=== PATIENT | male | born 1950 | race Two or more races ===

== ENCOUNTER 2016-08-10 00:47 | Emergency (ER) | payer MEDICAID ==
[~2016-08-10] VITALS: Ht 152.4 cm; Wt 55.0 kg
[~2016-08-10 00:47] MED LIST: ALBU6.7H IH; ASPI-1035 PO; ATOR10TA PO; CALCIUM; DIPH1TAB76; DIPH25CA83 PO; ESOM40CA; FERR-63 PO; HYDR-523 PO; MOME13HF2 IH; PHENDM PO; PROT40 PO; SENSIPAR PO; SEVE800T PO; TIOT18CA3 IH; VALS80TA2; [UNRECOGNIZED DRUG - CODE] PO; [UNRECOGNIZED DRUG - OTHER]
[2016-08-10 02:27] LABS: INR 1.2; PROTHROMBIN TIME 12.7 sec
[2016-08-10 02:29] LABS: ALANINE AMINOTRANSFERASE 8 IU/L (13-61); ALBUMIN 3.9 g/dL (3.4-5.0); ANION GAP 17; CALCIUM 9.3 mg/dL (8.5-10.1); CARBON DIOXIDE 31 mEq/L (21-32); CHLORIDE 91 mEq/L (98-107); INDEX HEMOLYSI 1 (1-3); INDEX ICTERIC 1 (1-4); INDEX LIPEMIC 1 (1-3); UREA NITROGEN BLOOD 41 mg/dL (7-21); eGFR 9 mL/min (>60)
[2016-08-10 02:50] LABS: HEMATOCRIT. 33.9 % (42.0-52.0); MEAN CORPUSCULAR HEMOGLOBIN 25.5 pg (28.0-32.0); MEAN CORPUSCULAR HGB CONC 32.4 g/dL (31.0-37.0); MEAN CORPUSCULAR VOLUME 78.9 fL (80.0-94.0); MEAN PLATELET VOLUME 8.4 fl (7.4-10.4); PLATELET 110 x1000/uL (130-400); RED BLOOD CELL COUNT 4.29 mill/uL (4.7-6.1); RED CELL DISTRIBUTION WIDTH 21.1 % (11.6-14.6); WHITE BLOOD COUNT 4.1 x1000/uL (4.5-11.0)
[2016-08-10 02:51] LABS: DIFFERENTIAL COMMENT 1
[2016-08-10] MEDS ORDERED: LEVOFLOXACIN 750MG PREMIX 150 ML IV ONE (03:00)
[2016-08-10 03:20] LABS: PLATELET ESTIMATE SLIGHTLY DECREASED
[2016-08-10 04:50] VITALS: BP 112/74
== END 2016-08-10 05:12 | disposition home or self-care (01) ==
LOC: ER 00:47
DX: N18.6 End stage renal disease (principal); R05 Cough; Z88.1 Allergy status to other antibiotic agents; Z88.2 Allergy status to sulfonamides; Z79.82 Long term (current) use of aspirin; Z79.899 Other long term (current) drug therapy; Z99.2 Dependence on renal dialysis
CPT/HCPCS: 36415; 71010; 80053; 83605; 85025; 85610; 85730; 87040; 93005; 96365; 99285; J1956; Z7610

== ENCOUNTER 2017-01-08 23:35 | Inpatient (IN) | payer MEDICAID ==
[~2017-01-08] VITALS: Ht 160 cm; Wt 54.4 kg
[~2017-01-08 23:35] MED LIST changes: -ASPI-1035 PO; +ASPI-1159 PO; +REN800 PO; -SEVE800T PO
[2017-01-09] MEDS ORDERED: ONDANSETRON HCL 4MG/2ML VIAL IV STA (00:24)
[2017-01-09] MEDS ORDERED: MORPHINE SULFATE 4 MG/ML CPJ (NOT FOR IM USE) IV STA (00:24)
[2017-01-09 01:15] LABS: BASOPHILS % 1.4 % (0.0-2.0); EOSINOPHILS % 3.4 % (0.0-5.0); HEMATOCRIT. 35.6 % (42.0-52.0); HEMOGLOBIN. 11.8 g/dL (14.0-18.0); LYMPHOCYTES % 26.8 % (20.0-50.0); MEAN CORPUSCULAR HEMOGLOBIN 24.8 pg (28.0-32.0); MEAN CORPUSCULAR VOLUME 74.8 fL (80.0-94.0); MEAN PLATELET VOLUME 8.4 fl (7.4-10.4); MONOCYTES % 8.1 % (2.0-8.0); NEUTROPHILS % 60.3 % (40.0-76.0); PLATELET 227 x1000/uL (130-400); RED BLOOD CELL COUNT 4.76 mill/uL (4.7-6.1); RED CELL DISTRIBUTION WIDTH 19.7 % (11.6-14.6)
[2017-01-09 01:25] LABS: CHLORIDE 90 mEq/L (98-107)
[2017-01-09 01:34] LABS: CARBON DIOXIDE 28 mEq/L (21-32); TROPONIN I < 0.02 ng/mL (0.00-0.04)
[2017-01-09] MEDS ORDERED: LEVOFLOXACIN 750MG PREMIX 150 ML IV ONE (02:15)
[2017-01-09] MEDS ORDERED: ACETAMINOPHEN 325MG TABLET PO PRN ×2 (02:30→10:30)
[2017-01-09] MEDS ORDERED: DIPHENHYDRAMINE 50MG/ML VIAL IV NR (03:15)
[2017-01-09 08:30] VITALS: BP_SYST 132; BP_DIAS 80; BP_DIAS 82
[2017-01-09] MEDS ORDERED: DOCUSATE SODIUM 100MG CAPSULE PO PRN (10:30)
[2017-01-09] MEDS ORDERED: CLONIDINE 0.1MG TABLET PO PRN (10:30)
[2017-01-09] MEDS ORDERED: ONDANSETRON HCL 4MG/2ML VIAL IV PRN (10:30)
[2017-01-09] MEDS ORDERED: MAGNESIUM/ALUMINUM HYDROXIDE/SIMETHICONE 30ML UDC PO PRN (10:30)
[2017-01-09] MEDS ORDERED: IPRATROPIUM/ALBUTEROL 0.5-3(2.5)MG/3ML NEB INH PRN (10:30)
[2017-01-09] MEDS ORDERED: HYDROCODONE/ACETAMINOPHEN 5/325MG TABLET PO PRN (10:30)
[2017-01-09] MEDS ORDERED: DIPHENHYDRAMINE 50MG/ML VIAL IV PRN (10:30)
[2017-01-09] MEDS ORDERED: HYDROMORPHONE HCL/PF 2MG/ML CPJ IV PRN (10:30)
[2017-01-09 12:00] VITALS: BP 127/79
[2017-01-09 12:27] LABS: PHOSPHORUS 2.7 mg/dL (2.5-4.9)
[2017-01-09] MEDS: SEVELAMER CARBONATE 800 MG TABLET PO SCH ×2 (15:02→18:53)
[2017-01-09] MEDS: FOLIC ACID/VITAMIN B COMP W-C TABLET PO SCH (15:02)
[2017-01-09 16:00] VITALS: BP 125/75
[2017-01-09 20:00] VITALS: BP 124/75
[2017-01-10] VITALS (7 sets, daily range): BP systolic 117–135; BP diastolic 73–84
[2017-01-10 05:28] LABS: BASOPHILS % 1.7 % (0.0-2.0); EOSINOPHILS % 2.5 % (0.0-5.0); HEMATOCRIT. 35.4 % (42.0-52.0); HEMOGLOBIN. 11.5 g/dL (14.0-18.0); LYMPHOCYTES % 19.6 % (20.0-50.0); MEAN CORPUSCULAR HEMOGLOBIN 24.6 pg (28.0-32.0); MEAN CORPUSCULAR VOLUME 75.5 fL (80.0-94.0); MEAN PLATELET VOLUME 8.1 fl (7.4-10.4); MONOCYTES % 10.1 % (2.0-8.0); NEUTROPHILS % 66.1 % (40.0-76.0); PLATELET 240 x1000/uL (130-400); RED BLOOD CELL COUNT 4.68 mill/uL (4.7-6.1); RED CELL DISTRIBUTION WIDTH 19.9 % (11.6-14.6)
[2017-01-10 06:28] LABS: CARBON DIOXIDE 28 mEq/L (21-32); CHLORIDE 96 mEq/L (98-107)
[2017-01-10] MEDS ORDERED: CALCIUM ACETATE 667MG CAPSULE PO SCH (08:10)
[2017-01-10] MEDS ORDERED: CALCITRIOL 0.25MCG CAPSULE PO SCH (09:00)
[2017-01-10] MEDS ORDERED: AMLODIPINE 10MG TABLET PO SCH (09:00)
[2017-01-10] MEDS ORDERED: ASPIRIN 81MG EC TABLET PO SCH (09:00)
[2017-01-10] MEDS: FOLIC ACID/VITAMIN B COMP W-C TABLET PO SCH (09:33)
[2017-01-10] MEDS ORDERED: TRAM50TA73 PO (11:52)
== END 2017-01-10 14:18 | disposition home or self-care (01) ==
LOC: ER 01-09 00:26 → 7WST 01-09 02:24 → EDBEDREQ 01-09 02:27 → EDBEDREQTM 01-09 02:27 → ENRESERV 01-09 07:46
PROVIDERS: ADMIT Hospitalist; ATTEND Hospitalist
DX: K80.20 Calculus of gallbladder without cholecystitis without obstruction (principal); J18.9 Pneumonia, unspecified organism; E46 Unspecified protein-calorie malnutrition; N18.6 End stage renal disease; I12.0 Hypertensive chronic kidney disease with stage 5 chronic kidney disease or end stage renal disease; J44.0 Chronic obstructive pulmonary disease with (acute) lower respiratory infection; E83.51 Hypocalcemia; S22.31XA Fracture of one rib, right side, initial encounter for closed fracture; E87.1 Hypo-osmolality and hyponatremia; Z99.2 Dependence on renal dialysis; D63.1 Anemia in chronic kidney disease; Z88.2 Allergy status to sulfonamides; Z88.8 Allergy status to other drugs, medicaments and biological substances; Z79.82 Long term (current) use of aspirin; Z79.899 Other long term (current) drug therapy; Z68.21 Body mass index [BMI] 21.0-21.9, adult
CPT/HCPCS: 36415; 71010; 71100; 74176; 76705; 80053; 82330; 83605; 83690; 83970; 84100; 84484; 85025; 87040; 93005; 93970; 96365; 96375; 99285; J1170; J1200; J1956; J2270; J2405; J7030

== ENCOUNTER 2017-02-05 14:51 | Emergency (ER) | payer MEDICAID ==
[~2017-02-05] VITALS: Ht 160 cm; Wt 53.0 kg
[~2017-02-05 14:51] MED LIST changes: +TRAM50TA73 PO
[2017-02-05 16:50] LABS: BASOPHILS % 1.1 % (0.0-2.0); EOSINOPHILS % 2.3 % (0.0-5.0); HEMATOCRIT. 39.7 % (42.0-52.0); MEAN CORPUSCULAR HEMOGLOBIN 25.5 pg (28.0-32.0); MEAN CORPUSCULAR VOLUME 77.7 fL (80.0-94.0); MEAN PLATELET VOLUME 8.9 fl (7.4-10.4); MONOCYTES % 10.9 % (2.0-8.0); NEUTROPHILS % 60.7 % (40.0-76.0); PLATELET 171 x1000/uL (130-400); RED CELL DISTRIBUTION WIDTH 22.6 % (11.6-14.6)
[2017-02-05] MEDS ORDERED: SODIUM CHLORIDE 0.9% 500 ML IV ONE (16:50)
[2017-02-05 16:58] LABS: CHLORIDE 94 mEq/L (98-107); INR 1.4; PROTHROMBIN TIME 14.6 sec (9.4-11.6)
[2017-02-05] MEDS ORDERED: ONDANSETRON HCL 4MG/2ML VIAL IV ONE (17:00)
[2017-02-05 17:07] LABS: CARBON DIOXIDE 28 mEq/L (21-32)
[2017-02-05 17:30] LABS: PLATELET ESTIMATE NORMAL
[2017-02-05] MEDS ORDERED: ONDANSETRON HCL 4MG TABLET PO ONE (20:15)
[2017-02-05 20:59] VITALS: BP 141/87
== END 2017-02-05 21:10 | disposition home or self-care (01) ==
LOC: ER 14:51
DX: R11.2 Nausea with vomiting, unspecified (principal); N18.6 End stage renal disease; E89.0 Postprocedural hypothyroidism; Z99.2 Dependence on renal dialysis; Z87.891 Personal history of nicotine dependence; Z88.3 Allergy status to other anti-infective agents; Z88.2 Allergy status to sulfonamides; Z79.82 Long term (current) use of aspirin
CPT/HCPCS: 36415; 74176; 80053; 83690; 85025; 85610; 96374; 99285; J2405; J7030; Q0162; Z7610

== ENCOUNTER 2017-05-07 15:33 | Emergency (ER) | payer MEDICAID ==
[~2017-05-07] VITALS: Ht 160 cm; Wt 53.0 kg
[~2017-05-07 15:33] MED LIST changes: -TRAM50TA73 PO; +TRAM50TA94 PO
[2017-05-07 20:04] LABS: BASOPHILS % 0.2 % (0.0-2.0); EOSINOPHILS % 2.9 % (0.0-5.0); HEMATOCRIT. 47.8 % (42.0-52.0); HEMOGLOBIN. 15.5 g/dL (14.0-18.0); LYMPHOCYTES % 32.4 % (20.0-50.0); MEAN CORPUSCULAR HEMOGLOBIN 24.7 pg (28.0-32.0); MEAN CORPUSCULAR VOLUME 76.2 fL (80.0-94.0); MEAN PLATELET VOLUME 8.1 fl (7.4-10.4); MONOCYTES % 12.5 % (2.0-8.0); PLATELET 206 x1000/uL (130-400); RED BLOOD CELL COUNT 6.27 mill/uL (4.7-6.1); RED CELL DISTRIBUTION WIDTH 20.6 % (11.6-14.6)
[2017-05-07 20:08] LABS: CHLORIDE 92 mEq/L (98-107)
[2017-05-07 20:09] LABS: INR 1.3; PROTHROMBIN TIME 13.6 sec (9.4-11.6)
[2017-05-07 20:17] LABS: CARBON DIOXIDE 31 mEq/L (21-32)
[2017-05-07] MEDS ORDERED: MORPHINE SULFATE 4 MG/ML CPJ (NOT FOR IM USE) IV STA (23:05)
[2017-05-07] MEDS ORDERED: ONDANSETRON HCL 4MG/2ML VIAL IV STA (23:05)
[2017-05-07 23:46] VITALS: BP 109/61
== END 2017-05-07 23:45 | disposition home or self-care (01) ==
LOC: ER 15:37
DX: G89.29 Other chronic pain (principal); M54.9 Dorsalgia, unspecified; N18.6 End stage renal disease; J45.909 Unspecified asthma, uncomplicated; Z99.2 Dependence on renal dialysis; Z88.2 Allergy status to sulfonamides; Z88.8 Allergy status to other drugs, medicaments and biological substances; Z79.899 Other long term (current) drug therapy
CPT/HCPCS: 36415; 74176; 80053; 85025; 85610; 96374; 96375; 99285; J2270; J2405; Z7610

== ENCOUNTER 2017-07-02 16:15 | Inpatient (IN) | payer SELFPAY ==
[~2017-07-02] VITALS: Ht 162.6 cm; Wt 52.2 kg
[~2017-07-02 16:15] MED LIST changes: -ESOM40CA; +ESOM40CA PO; -REN800 PO; -VALS80TA2; +VALS80TA2 PO; -[UNRECOGNIZED DRUG - OTHER]; +[UNRECOGNIZED DRUG - OTHER] PO
[2017-07-02] MEDS ORDERED: ASPIRIN 81MG TABLET PO STA (18:34)
[2017-07-02 19:06] LABS: BASOPHILS % 1.1 % (0.0-2.0); EOSINOPHILS % 2.7 % (0.0-5.0); HEMATOCRIT. 49.3 % (42.0-52.0); HEMOGLOBIN. 16.3 g/dL (14.0-18.0); LYMPHOCYTES % 18.6 % (20.0-50.0); MEAN CORPUSCULAR HEMOGLOBIN 25.8 pg (28.0-32.0); MEAN CORPUSCULAR VOLUME 77.9 fL (80.0-94.0); MONOCYTES % 8.7 % (2.0-8.0); NEUTROPHILS % 68.9 % (40.0-76.0); PLATELET 270 x1000/uL (130-400); RED BLOOD CELL COUNT 6.32 mill/uL (4.7-6.1); RED CELL DISTRIBUTION WIDTH 18.9 % (11.6-14.6)
[2017-07-02 19:14] LABS: INR 1.1; PARTIAL THROMBOPLASTIN TIME 23.5 sec (23.4-31.0)
[2017-07-02 19:16] LABS: CHLORIDE 90 mEq/L (98-107)
[2017-07-02 19:23] LABS: CREATINE KINASE 51 IU/L (39-308); TROPONIN I < 0.02 ng/mL (0.00-0.04)
[2017-07-02] MEDS ORDERED: NA PHOS,M-B/NA PHOS,DI-BA ENEMA 118ML PR PRN (20:45)
[2017-07-02] MEDS ORDERED: MAGNESIUM/ALUMINUM HYDROXIDE/SIMETHICONE 30ML UDC PO PRN (20:45)
[2017-07-02] MEDS ORDERED: DOCUSATE SODIUM 100MG CAPSULE PO PRN (20:45)
[2017-07-02] MEDS ORDERED: IPRATROPIUM/ALBUTEROL 0.5-3(2.5)MG/3ML NEB INH PRN (20:45)
[2017-07-02] MEDS ORDERED: ENOXAPARIN 40MG/0.4ML SYR SUBCUT SCH (20:45)
[2017-07-02] MEDS ORDERED: ACETAMINOPHEN 325MG TABLET PO PRN (20:45)
[2017-07-02] MEDS ORDERED: DIPHENHYDRAMINE 50MG/ML VIAL IV PRN (20:45)
[2017-07-02] MEDS ORDERED: CLONIDINE 0.1MG TABLET PO PRN (20:45)
[2017-07-02] MEDS ORDERED: GUAIFENESIN 200MG/10ML SUGAR FREE UDC PO PRN (20:45)
[2017-07-02] MEDS ORDERED: NITROGLYCERIN 0.4MG TABLET SL SL PRN (20:45)
[2017-07-02] MEDS ORDERED: LORAZEPAM 0.5MG TABLET PO PRN (20:45)
[2017-07-02] MEDS ORDERED: ZOLPIDEM TARTRATE 5MG TABLET PO PRN (20:45)
[2017-07-02] MEDS ORDERED: ONDANSETRON HCL 4MG/2ML VIAL IV PRN (20:45)
[2017-07-02] MEDS ORDERED: FAMOTIDINE 20MG/2ML VIAL IV SCH (21:00)
[2017-07-02 22:10] LABS: CREATINE KINASE 40 IU/L (39-308); CREATINE KINASE MB FRACTION 1.7 ng/mL (0.5-3.6); TROPONIN I < 0.02 ng/mL (0.00-0.04)
[2017-07-03] VITALS: BP 120/86
[2017-07-03 04:00] VITALS: BP 130/90
[2017-07-03 07:11] LABS: CREATINE KINASE MB FRACTION 1.5 ng/mL (0.5-3.6); TROPONIN I 0.02 ng/mL (0.00-0.04)
[2017-07-03 08:00] VITALS: BP 100/68
[2017-07-03] MEDS: SEVELAMER CARBONATE 800 MG TABLET PO SCH ×2 (08:10→13:15)
[2017-07-03] MEDS: ASPIRIN 325MG EC TABLET PO SCH ×2 (09:00→11:44)
[2017-07-03] MEDS ORDERED: FOLIC ACID/VITAMIN B COMP W-C TABLET PO SCH (09:00)
[2017-07-03] MEDS ORDERED: ENOXAPARIN 30MG/0.3ML SYR SUBCUT SCH (09:00)
[2017-07-03] MEDS ORDERED: FAMOTIDINE 20MG/2ML VIAL IV SCH (09:00)
[2017-07-03 12:00] VITALS: BP 111/69
[2017-07-03 13:01] VITALS: BP 111/69
[2017-07-03 16:00] VITALS: BP 128/84
== END 2017-07-03 17:05 | disposition home or self-care (01) | DRG 425 ==
LOC: ER 16:15 → 7WST 20:24 → EDBEDREQTM 20:28 → EDBEDREQ 20:28 → ENRESERV 21:41 → 7WST 07-03 08:20
PROVIDERS: ADMIT Internal Medicine; ATTEND Internal Medicine
DX: E87.70 Fluid overload, unspecified (principal); I50.33 Acute on chronic diastolic (congestive) heart failure; E46 Unspecified protein-calorie malnutrition; N18.6 End stage renal disease; I13.2 Hypertensive heart and chronic kidney disease with heart failure and with stage 5 chronic kidney disease, or end stage renal disease; E87.1 Hypo-osmolality and hyponatremia; D63.8 Anemia in other chronic diseases classified elsewhere; E83.51 Hypocalcemia; Z99.2 Dependence on renal dialysis; Z88.2 Allergy status to sulfonamides; Z88.8 Allergy status to other drugs, medicaments and biological substances; Z79.899 Other long term (current) drug therapy; Z79.82 Long term (current) use of aspirin; Z68.1 Body mass index [BMI] 19.9 or less, adult
CPT/HCPCS: 36415; 71045; 80053; 80061; 82550; 82553; 83036; 83605; 83690; 83880; 84443; 84484; 85025; 85610; 85730; 87040; 93005; 93970; 99285; J1650; J3490

== ENCOUNTER 2018-04-23 11:48 | Inpatient (IN) | payer MEDICAID ==
[~2018-04-23] VITALS: Ht 165.1 cm; Wt 56.2 kg
[2018-04-23] MEDS ORDERED: KETOROLAC 30MG/ML VIAL IV STA (13:20)
[2018-04-23] MEDS ORDERED: SODIUM CHLORIDE 0.9% 250 ML IV ONE ×4 (13:30→21:45)
[2018-04-23 15:37] LABS: BASOPHILS % 0.5 % (0.0-2.0); EOSINOPHILS % 0.4 % (0.0-5.0); HEMATOCRIT. 48.5 % (42.0-52.0); HEMOGLOBIN. 16.4 g/dL (14.0-18.0); LYMPHOCYTES % 6.8 % (20.0-50.0); MEAN CORPUSCULAR HEMOGLOBIN 28.1 pg (28.0-32.0); MEAN CORPUSCULAR VOLUME 83.1 fL (80.0-94.0); MEAN PLATELET VOLUME 8.2 fl (7.4-10.4); MONOCYTES % 8.1 % (2.0-8.0); NEUTROPHILS % 84.2 % (40.0-76.0); PLATELET 141 x1000/uL (130-400); RED BLOOD CELL COUNT 5.84 mill/uL (4.7-6.1); RED CELL DISTRIBUTION WIDTH 16.8 % (11.6-14.6)
[2018-04-23 15:42] LABS: CHLORIDE 94 mEq/L (98-107)
[2018-04-23 15:45] LABS: INR 1.3; PARTIAL THROMBOPLASTIN TIME 29.9 sec (23.4-31.0); PROTHROMBIN TIME 12.7 sec (9.1-11.1)
[2018-04-23] MEDS ORDERED: GUAIFENESIN 200MG/10ML SUGAR FREE UDC PO PRN (18:30)
[2018-04-23] MEDS ORDERED: ONDANSETRON HCL 4MG/2ML INJ IV PRN (18:30)
[2018-04-23] MEDS ORDERED: ENOXAPARIN 40MG/0.4ML SYR SUBCUT SCH (18:30)
[2018-04-23] MEDS ORDERED: DOCUSATE SODIUM 100MG CAPSULE PO PRN (18:30)
[2018-04-23] MEDS ORDERED: CLONIDINE 0.1MG TABLET PO PRN (18:30)
[2018-04-23] MEDS ORDERED: LORAZEPAM 2MG/ML CPJ IV PRN (18:30)
[2018-04-23] MEDS ORDERED: DIPHENHYDRAMINE 50MG/ML VIAL IV PRN (18:30)
[2018-04-23] MEDS ORDERED: HYDROCODONE/ACETAMINOPHEN 5/325MG TABLET PO PRN (18:30)
[2018-04-23] MEDS ORDERED: MAGNESIUM/ALUMINUM HYDROXIDE/SIMETHICONE 30ML UDC PO PRN (18:30)
[2018-04-23] MEDS ORDERED: SODIUM CHLORIDE 0.9% 250 ML IV PRN (18:30)
[2018-04-23] MEDS ORDERED: ACETAMINOPHEN 325MG TABLET PO PRN (18:30)
[2018-04-23] MEDS ORDERED: IPRATROPIUM/ALBUTEROL 0.5-3(2.5)MG/3ML NEB INH PRN (18:30)
[2018-04-23] MEDS ORDERED: POTASSIUM CHLORIDE 20MEQ TABLET SR PO NR (20:00)
[2018-04-23] MEDS ORDERED: LEVOFLOXACIN 500MG PREMIX 100 ML IV SCH (21:45)
[2018-04-23] MEDS ORDERED: MIDODRINE HCL 5MG TABLET PO ONE (21:45)
[2018-04-24] VITALS (11 sets, daily range): BP systolic 92–126; BP diastolic 37–82
[2018-04-24 00:13] LABS: CREATINE KINASE MB FRACTION 1.2 ng/mL (0.5-3.6)
[2018-04-24] MEDS ORDERED: HYDROMORPHONE HCL/PF 2MG/ML CPJ IV PRN (03:18)
[2018-04-24] MEDS ORDERED: HYDRALAZINE 20MG/ML VIAL IV PRN (03:19)
[2018-04-24] MEDS ORDERED: SODIUM CHLORIDE 0.9% 250 ML IV PRN ×2 (03:45)
[2018-04-24] MEDS ORDERED: LEVOFLOXACIN 500MG PREMIX 100 ML IV SCH (05:00)
[2018-04-24] MEDS: SODIUM CHLORIDE 0.9% INJ 3ML FLUSH IVF SCH ×3 (05:36→21:00)
[2018-04-24 06:52] LABS: BASOPHILS % 0.9 % (0.0-2.0); EOSINOPHILS % 1.7 % (0.0-5.0); HEMATOCRIT. 44.3 % (42.0-52.0); HEMOGLOBIN. 14.8 g/dL (14.0-18.0); LYMPHOCYTES % 11.5 % (20.0-50.0); MEAN CORPUSCULAR HEMOGLOBIN 28.4 pg (28.0-32.0); MEAN CORPUSCULAR VOLUME 84.8 fL (80.0-94.0); MEAN PLATELET VOLUME 8.5 fl (7.4-10.4); MONOCYTES % 10.4 % (2.0-8.0); NEUTROPHILS % 75.5 % (40.0-76.0); PLATELET 132 x1000/uL (130-400); RED BLOOD CELL COUNT 5.22 mill/uL (4.7-6.1); RED CELL DISTRIBUTION WIDTH 16.9 % (11.6-14.6)
[2018-04-24] MEDS: CALCIUM CARBONATE/VITAMIN D3 500MG TABLET PO SCH ×4 (07:53→21:00)
[2018-04-24] MEDS: ASPIRIN 81MG EC TABLET PO SCH (07:53)
[2018-04-24 08:38] LABS: CHLORIDE 97 mEq/L (98-107)
[2018-04-24 08:46] LABS: CREATINE KINASE 262 IU/L (39-308)
[2018-04-24 08:47] LABS: T4 FREE 1.12 ng/dL (0.76-1.46)
[2018-04-24] MEDS ORDERED: ENOXAPARIN 30MG/0.3ML SYR SUBCUT SCH (09:00)
[2018-04-24 09:26] LABS: CREATINE KINASE MB FRACTION 1.2 ng/mL (0.5-3.6)
[2018-04-25] VITALS (14 sets, daily range): BP systolic 93–146; BP diastolic 41–88
[2018-04-25] MEDS: SODIUM CHLORIDE 0.9% INJ 3ML FLUSH IVF SCH ×2 (06:43→14:00)
[2018-04-25] MEDS: CALCIUM CARBONATE/VITAMIN D3 500MG TABLET PO SCH ×3 (09:00→17:00)
[2018-04-25] MEDS: ASPIRIN 81MG EC TABLET PO SCH (14:46)
[2018-04-26] MEDS ORDERED: LEVOFLOXACIN 250MG PREMIX 50 ML IV SCH (05:00)
== END 2018-04-25 21:24 | disposition home or self-care (01) | DRG 207 ==
LOC: ER 11:48 → 3WST 18:01 → ENRESERV 22:31 → CANRESERV 22:31 → EDBEDREQSVC 23:26 → EDBEDREQ 23:26 → ENRESERV 04-24 02:29
PROVIDERS: ADMIT Internal Medicine; ATTEND Internal Medicine
PROC: 5A1D70Z Performance of Urinary Filtration, Intermittent, Less than 6 Hours Per Day (ICD-10-PCS; principal; 2018-04-25)
DX: I95.89 Other hypotension (principal); E46 Unspecified protein-calorie malnutrition; I12.0 Hypertensive chronic kidney disease with stage 5 chronic kidney disease or end stage renal disease; I42.9 Cardiomyopathy, unspecified; N18.6 End stage renal disease; E83.51 Hypocalcemia; M48.00 Spinal stenosis, site unspecified; K52.9 Noninfective gastroenteritis and colitis, unspecified; E86.1 Hypovolemia; E87.6 Hypokalemia; E03.9 Hypothyroidism, unspecified; M19.90 Unspecified osteoarthritis, unspecified site; K21.9 Gastro-esophageal reflux disease without esophagitis; M81.0 Age-related osteoporosis without current pathological fracture; Z99.2 Dependence on renal dialysis; Z68.20 Body mass index [BMI] 20.0-20.9, adult; Z91.013 Allergy to seafood; Z88.2 Allergy status to sulfonamides; Z91.018 Allergy to other foods; Z79.899 Other long term (current) drug therapy; Z79.82 Long term (current) use of aspirin; Z85.46 Personal history of malignant neoplasm of prostate; Z92.3 Personal history of irradiation
CPT/HCPCS: 36415; 71045; 80061; 82550; 82553; 83036; 83880; 84439; 84443; 84484; 85379; 93005; 93306; 96361; 96374; 99285; J1650; J1885; J1956; J7050

== ENCOUNTER 2018-06-02 21:49 | Inpatient (IN) | payer MEDICAID ==
[~2018-06-02] VITALS: Ht 160 cm; Wt 56.8 kg
[2018-06-02] MEDS ORDERED: MORPHINE SULFATE 4 MG/ML CPJ (NOT FOR IM USE) IV STA (22:54)
[2018-06-02] MEDS ORDERED: ONDANSETRON HCL 4MG/2ML INJ IV STA (22:54)
[2018-06-02 23:44] LABS: CHLORIDE 90 mEq/L (98-107)
[2018-06-02 23:46] LABS: BASOPHILS % 0.7 % (0.0-2.0); EOSINOPHILS % 0.4 % (0.0-5.0); HEMATOCRIT. 50.7 % (42.0-52.0); HEMOGLOBIN. 16.7 g/dL (14.0-18.0); LYMPHOCYTES % 11.6 % (20.0-50.0); MEAN CORPUSCULAR HEMOGLOBIN 26.7 pg (28.0-32.0); MEAN CORPUSCULAR VOLUME 81.1 fL (80.0-94.0); MEAN PLATELET VOLUME 8.3 fl (7.4-10.4); MONOCYTES % 8.5 % (2.0-8.0); NEUTROPHILS % 78.8 % (40.0-76.0); PLATELET 151 x1000/uL (130-400); RED BLOOD CELL COUNT 6.24 mill/uL (4.7-6.1); RED CELL DISTRIBUTION WIDTH 16.8 % (11.6-14.6)
[2018-06-02 23:48] LABS: ETHANOL BLOOD < 10 mg/dL
[2018-06-02 23:55] LABS: INR 1.3; PARTIAL THROMBOPLASTIN TIME 30.5 sec (23.4-31.0); PROTHROMBIN TIME 12.6 sec (9.1-11.1)
[2018-06-03 03:00] VITALS: BP 102/66
[2018-06-03] MEDS ORDERED: ENOXAPARIN 40MG/0.4ML SYR SUBCUT SCH (05:30)
[2018-06-03] MEDS ORDERED: ACETAMINOPHEN 325MG TABLET PO PRN (05:30)
[2018-06-03] MEDS ORDERED: MAGNESIUM/ALUMINUM HYDROXIDE/SIMETHICONE 30ML UDC PO PRN (05:30)
[2018-06-03] MEDS ORDERED: IPRATROPIUM/ALBUTEROL 0.5-3(2.5)MG/3ML NEB INH PRN (05:30)
[2018-06-03] MEDS ORDERED: CLONIDINE 0.1MG TABLET PO PRN (05:30)
[2018-06-03] MEDS ORDERED: GUAIFENESIN 200MG/10ML SUGAR FREE UDC PO PRN (05:30)
[2018-06-03] MEDS ORDERED: HYDROCODONE/ACETAMINOPHEN 10/325MG TABLET PO PRN (05:30)
[2018-06-03] MEDS ORDERED: HYDROMORPHONE HCL/PF 2MG/ML CPJ IV PRN (05:30)
[2018-06-03] MEDS ORDERED: ONDANSETRON HCL 4MG/2ML INJ IV PRN (05:30)
[2018-06-03] MEDS ORDERED: HYDRALAZINE 20MG/ML VIAL IV PRN (05:30)
[2018-06-03] MEDS ORDERED: DOCUSATE SODIUM 100MG CAPSULE PO PRN (05:30)
[2018-06-03] MEDS ORDERED: PIPERACILLIN/TAZ 3.375G PREMIX 50 ML IV SCH (05:30)
[2018-06-03] MEDS ORDERED: LORAZEPAM 2MG/ML CPJ IV PRN (05:30)
[2018-06-03] MEDS: SODIUM CHLORIDE 0.9% INJ 3ML FLUSH IVF SCH ×3 (06:46→20:59)
[2018-06-03 08:00] VITALS: BP 107/70
[2018-06-03] MEDS: ENOXAPARIN 30MG/0.3ML SYR SUBCUT SCH (08:40)
[2018-06-03] MEDS: ASPIRIN 81MG EC TABLET PO SCH (08:40)
[2018-06-03] MEDS: PIPERACILLIN/TAZ 2.25G PREMIX 50 ML IV SCH ×2 (08:40→20:59)
[2018-06-03 09:37] LABS: CREATINE KINASE MB FRACTION < 1.0 ng/mL (0.5-3.6)
[2018-06-03 09:39] LABS: CREATINE KINASE 204 IU/L (39-308)
[2018-06-03 12:00] VITALS: BP 102/69
[2018-06-03 16:00] VITALS: BP 108/74
[2018-06-03 16:26] LABS: CREATINE KINASE 167 IU/L (39-308)
[2018-06-03 16:27] LABS: CREATINE KINASE MB FRACTION < 1.0 ng/mL (0.5-3.6)
[2018-06-03 20:00] VITALS: BP 109/72
[2018-06-03] MEDS: DIPHENHYDRAMINE 50MG/ML VIAL IV PRN (23:27)
[2018-06-04] VITALS: BP 119/80
[2018-06-04 04:00] VITALS: BP 96/65
[2018-06-04] MEDS: CALCIUM CARBONATE 1250MG TABLET (500MG ELEMENTAL CALCIUM) PO SCH ×3 (06:24→23:22)
[2018-06-04] MEDS: SODIUM CHLORIDE 0.9% INJ 3ML FLUSH IVF SCH ×3 (06:24→22:00)
[2018-06-04 07:05] LABS: BASOPHILS % 1.3 % (0.0-2.0); EOSINOPHILS % 3.4 % (0.0-5.0); HEMOGLOBIN. 15.1 g/dL (14.0-18.0); LYMPHOCYTES % 27.2 % (20.0-50.0); MEAN CORPUSCULAR HEMOGLOBIN 26.8 pg (28.0-32.0); MEAN CORPUSCULAR VOLUME 81.8 fL (80.0-94.0); MEAN PLATELET VOLUME 8.3 fl (7.4-10.4); MONOCYTES % 10.9 % (2.0-8.0); NEUTROPHILS % 57.2 % (40.0-76.0); PLATELET 139 x1000/uL (130-400); RED BLOOD CELL COUNT 5.63 mill/uL (4.7-6.1); RED CELL DISTRIBUTION WIDTH 16.8 % (11.6-14.6)
[2018-06-04 07:47] LABS: CHLORIDE 90 mEq/L (98-107)
[2018-06-04 07:55] LABS: LDL CHOLESTEROL 69 mg/dL (5-100)
[2018-06-04 07:56] LABS: HDL CHOLESTEROL 27 mg/dL (40-59); T4 FREE 1.07 ng/dL (0.76-1.46)
[2018-06-04 08:00] VITALS: BP 113/71
[2018-06-04 12:22] VITALS: BP 85/58
[2018-06-04] MEDS: ASPIRIN 81MG EC TABLET PO SCH (12:42)
[2018-06-04] MEDS: PIPERACILLIN/TAZ 2.25G PREMIX 50 ML IV SCH ×2 (12:42→23:21)
[2018-06-04] MEDS: ENOXAPARIN 30MG/0.3ML SYR SUBCUT SCH (12:43)
[2018-06-04 16:00] VITALS: BP 116/72
[2018-06-04 20:00] VITALS: BP 125/76
[2018-06-05] VITALS: BP 128/77
[2018-06-05 04:00] VITALS: BP 112/72
[2018-06-05] MEDS: SODIUM CHLORIDE 0.9% INJ 3ML FLUSH IVF SCH ×3 (06:04→21:11)
[2018-06-05] MEDS: CALCIUM CARBONATE 1250MG TABLET (500MG ELEMENTAL CALCIUM) PO SCH ×3 (06:23→22:00)
[2018-06-05 08:00] VITALS: BP 125/85
[2018-06-05] MEDS: PIPERACILLIN/TAZ 2.25G PREMIX 50 ML IV SCH ×2 (08:58→20:33)
[2018-06-05] MEDS: ASPIRIN 81MG EC TABLET PO SCH (08:58)
[2018-06-05] MEDS: CHOLECALCIFEROL (D3) 1000 UNIT TABLET PO SCH (08:58)
[2018-06-05] MEDS: ENOXAPARIN 30MG/0.3ML SYR SUBCUT SCH (08:58)
[2018-06-05 12:00] VITALS: BP 128/77
[2018-06-05 16:00] VITALS: BP 128/76
[2018-06-05 20:00] VITALS: BP 119/75
[2018-06-06] VITALS (7 sets, daily range): BP systolic 108–132; BP diastolic 66–78
[2018-06-06] MEDS: CALCIUM CARBONATE 1250MG TABLET (500MG ELEMENTAL CALCIUM) PO SCH ×3 (06:27→21:39)
[2018-06-06] MEDS: SODIUM CHLORIDE 0.9% INJ 3ML FLUSH IVF SCH ×3 (06:57→21:39)
[2018-06-06 07:13] LABS: EOSINOPHILS % 7.5 % (0.0-5.0); HEMOGLOBIN. 14.5 g/dL (14.0-18.0); LYMPHOCYTES % 33.6 % (20.0-50.0); MEAN CORPUSCULAR HEMOGLOBIN 26.7 pg (28.0-32.0); MEAN CORPUSCULAR VOLUME 82.9 fL (80.0-94.0); MEAN PLATELET VOLUME 8.1 fl (7.4-10.4); MONOCYTES % 12.4 % (2.0-8.0); NEUTROPHILS % 44.5 % (40.0-76.0); PLATELET 157 x1000/uL (130-400); RED BLOOD CELL COUNT 5.42 mill/uL (4.7-6.1); RED CELL DISTRIBUTION WIDTH 16.6 % (11.6-14.6)
[2018-06-06] MEDS: ASPIRIN 81MG EC TABLET PO SCH (08:19)
[2018-06-06] MEDS: ENOXAPARIN 30MG/0.3ML SYR SUBCUT SCH (08:19)
[2018-06-06] MEDS: CHOLECALCIFEROL (D3) 1000 UNIT TABLET PO SCH (08:19)
[2018-06-06] MEDS: PIPERACILLIN/TAZ 2.25G PREMIX 50 ML IV SCH ×2 (10:25→19:47)
[2018-06-06] MEDS: DIPHENHYDRAMINE 50MG/ML VIAL IV PRN (12:07)
[2018-06-06] MEDS ORDERED: TUBERCULIN,PURIF.PROT.DERIV. 5 TU/0.1 ML SYR ID ONE (22:00)
[2018-06-07] VITALS: BP 119/68
== END 2018-06-07 01:39 | disposition home or self-care (01) | DRG 249 ==
LOC: ER 21:49 → 7WST 06-03 01:09 → EDBEDREQTM 06-03 01:13 → EDBEDREQ 06-03 01:13 → ENRESERV 06-03 01:43
PROVIDERS: ADMIT Internal Medicine; ATTEND Internal Medicine
PROC: 5A1D70Z Performance of Urinary Filtration, Intermittent, Less than 6 Hours Per Day (ICD-10-PCS; principal; 2018-06-04)
DX: A08.4 Viral intestinal infection, unspecified (principal); E46 Unspecified protein-calorie malnutrition; E87.5 Hyperkalemia; N18.6 End stage renal disease; K80.20 Calculus of gallbladder without cholecystitis without obstruction; I10 Essential (primary) hypertension; K40.90 Unilateral inguinal hernia, without obstruction or gangrene, not specified as recurrent; D72.829 Elevated white blood cell count, unspecified; Z99.2 Dependence on renal dialysis; Z91.013 Allergy to seafood; Z88.2 Allergy status to sulfonamides; Z91.018 Allergy to other foods; Z79.82 Long term (current) use of aspirin; Z85.46 Personal history of malignant neoplasm of prostate; Z92.3 Personal history of irradiation; Z79.899 Other long term (current) drug therapy; Q61.3 Polycystic kidney, unspecified; Z68.22 Body mass index [BMI] 22.0-22.9, adult
CPT/HCPCS: 36415; 71045; 74176; 80048; 80061; 82550; 82553; 83605; 83880; 84439; 84443; 84484; 87015; 87045; 87427; 87449; 90585; 93005; 94640; 96374; 96375; 99285; J1200; J1650; J2270; J2405; J2543; J7050

== ENCOUNTER 2018-09-20 09:51 | Inpatient (IN) | payer MEDICAID ==
[~2018-09-20] VITALS: Ht 172.7 cm; Wt 78.2 kg
[~2018-09-20 09:51] MED LIST changes: -ASPI-1159 PO; +ASPI-1393 PO
[2018-09-20] MEDS ORDERED: ONDANSETRON HCL 4MG/2ML INJ IV STA (11:57)
[2018-09-20] MEDS ORDERED: SODIUM CHLORIDE 0.9% 1,000 ML IV ONE (11:57)
[2018-09-20] MEDS ORDERED: MORPHINE SULFATE 4 MG/ML CPJ (NOT FOR IM USE) IV ONE (12:00)
[2018-09-20 12:38] LABS: HEMATOCRIT. 41.3 % (42.0-52.0); HEMOGLOBIN. 13.5 g/dL (14.0-18.0); MEAN CORPUSCULAR HEMOGLOBIN 24.5 pg (28.0-32.0); MEAN CORPUSCULAR VOLUME 74.7 fL (80.0-94.0); PLATELET 179 x1000/uL (130-400); RED BLOOD CELL COUNT 5.52 mill/uL (4.7-6.1); RED CELL DISTRIBUTION WIDTH 17.9 % (11.6-14.6)
[2018-09-20 12:43] LABS: CHLORIDE 92 mEq/L (98-107)
[2018-09-20 12:49] LABS: D-DIMER 1.7 mg/L FEU (<0.50); INR 1.1; PARTIAL THROMBOPLASTIN TIME 28.2 sec (23.4-31.0); PROTHROMBIN TIME 11.8 sec (9.6-11.0)
[2018-09-20 13:08] LABS: PLATELET ESTIMATE NORMAL
[2018-09-20] MEDS ORDERED: CALCIUM GLUCONATE 1,000 MG in DEXTROSE 5% WATER 50 ML IV ONE (15:00)
[2018-09-20] MEDS ORDERED: IPRATROPIUM/ALBUTEROL 0.5-3(2.5)MG/3ML NEB INH PRN (15:30)
[2018-09-20] MEDS ORDERED: DOCUSATE SODIUM 100MG CAPSULE PO PRN (15:30)
[2018-09-20] MEDS ORDERED: DIPHENHYDRAMINE 50MG/ML VIAL IV PRN (15:30)
[2018-09-20] MEDS ORDERED: MORPHINE SULFATE 2 MG/ML CPJ (NOT FOR IM USE) IV PRN (15:30)
[2018-09-20] MEDS ORDERED: GUAIFENESIN 200MG/10ML SUGAR FREE UDC PO PRN (15:30)
[2018-09-20] MEDS ORDERED: ONDANSETRON HCL 4MG/2ML INJ IV PRN (15:30)
[2018-09-20] MEDS ORDERED: MAGNESIUM/ALUMINUM HYDROXIDE/SIMETHICONE 30ML UDC PO PRN (15:30)
[2018-09-20] MEDS ORDERED: CLONIDINE 0.1MG TABLET PO PRN (15:30)
[2018-09-20] MEDS ORDERED: IOHEXOL-350 100 ML BOTTLE ONE (16:45)
[2018-09-20 18:45] VITALS: BP 133/87
[2018-09-20] MEDS ORDERED: REN800 MT (19:49)
[2018-09-20 20:00] VITALS: BP 135/92
[2018-09-20] MEDS: CALCIUM CARBONATE 1250MG TABLET (500MG ELEMENTAL CALCIUM) PO SCH (21:38)
[2018-09-20 23:46] VITALS: BP 119/81
[2018-09-21 04:00] VITALS: BP 107/72
[2018-09-21 07:46] VITALS: BP 112/79
[2018-09-21] MEDS: CALCITRIOL 0.25MCG CAPSULE PO SCH (11:31)
[2018-09-21 12:06] VITALS: BP 108/67
[2018-09-21] MEDS: CALCIUM CARBONATE 1250MG TABLET (500MG ELEMENTAL CALCIUM) PO SCH ×3 (12:39→18:57)
[2018-09-21] MEDS: MORPHINE SULFATE 2 MG/ML CPJ (NOT FOR IM USE) IV PRN ×2 (12:43→14:34)
[2018-09-21 15:51] VITALS: BP 150/75
[2018-09-21 20:30] VITALS: BP 136/81
[2018-09-22] VITALS: BP 137/82
[2018-09-22] MEDS: MORPHINE SULFATE 2 MG/ML CPJ (NOT FOR IM USE) IV PRN (00:07)
[2018-09-22 04:00] VITALS: BP 136/83
[2018-09-22 07:02] LABS: HEMATOCRIT. 38.5 % (42.0-52.0); HEMOGLOBIN. 12.7 g/dL (14.0-18.0); MEAN CORPUSCULAR HEMOGLOBIN 24.7 pg (28.0-32.0); MEAN CORPUSCULAR VOLUME 75.1 fL (80.0-94.0); MEAN PLATELET VOLUME 8.2 fl (7.4-10.4); PLATELET 158 x1000/uL (130-400); RED BLOOD CELL COUNT 5.12 mill/uL (4.7-6.1); RED CELL DISTRIBUTION WIDTH 17.3 % (11.6-14.6)
[2018-09-22 07:13] LABS: CHLORIDE 97 mEq/L (98-107)
[2018-09-22] MEDS ORDERED: PANTOPRAZOLE 40MG DR TABLET PO SCH (07:20)
[2018-09-22 07:33] LABS: TOTAL IRON BINDING CAPACITY 307 ug/dL (250-450)
[2018-09-22 08:00] VITALS: BP 102/78
[2018-09-22] MEDS: CALCIUM CARBONATE 1250MG TABLET (500MG ELEMENTAL CALCIUM) PO SCH ×2 (08:58→13:14)
[2018-09-22] MEDS: CALCITRIOL 0.25MCG CAPSULE PO SCH (08:58)
[2018-09-22 12:00] VITALS: BP 131/77
[2018-09-22 14:02] LABS: PLATELET ESTIMATE NORMAL
[2018-09-22] MEDS ORDERED: CALC0.253 PO (15:15)
[2018-09-22] MEDS ORDERED: DOCU-150 MT (15:15)
[2018-09-22 15:49] VITALS: BP 130/72
[2018-09-22 16:00] VITALS: BP 127/78
[2018-09-22] MEDS ORDERED: ATORVASTATIN CALCIUM 10MG TABLET PO SCH (21:00)
== END 2018-09-22 17:45 | disposition home or self-care (01) | DRG 203 ==
LOC: ER 09:51 → 6WST 15:07 → ENRESERV 15:56 → ER 17:05
PROVIDERS: ADMIT Internal Medicine; ATTEND Internal Medicine
PROC: 5A1D70Z Performance of Urinary Filtration, Intermittent, Less than 6 Hours Per Day (ICD-10-PCS; principal; 2018-09-20)
DX: R07.89 Other chest pain (principal); E87.70 Fluid overload, unspecified; D72.1 Eosinophilia; N18.6 End stage renal disease; E83.51 Hypocalcemia; M48.56XA Collapsed vertebra, not elsewhere classified, lumbar region, initial encounter for fracture; Q61.3 Polycystic kidney, unspecified; I45.10 Unspecified right bundle-branch block; D50.9 Iron deficiency anemia, unspecified; E89.0 Postprocedural hypothyroidism; E89.2 Postprocedural hypoparathyroidism; I44.0 Atrioventricular block, first degree; J98.11 Atelectasis; Z85.46 Personal history of malignant neoplasm of prostate; Z99.2 Dependence on renal dialysis; Z99.3 Dependence on wheelchair; Z88.5 Allergy status to narcotic agent; Z91.013 Allergy to seafood; Z88.8 Allergy status to other drugs, medicaments and biological substances; Z91.018 Allergy to other foods
CPT/HCPCS: 36415; 71045; 71110; 71275; 78582; 80048; 82728; 83540; 83550; 83735; 83880; 83970; 84100; 84145; 84484; 85379; 93005; 93970; 96374; 96375; 97162; 97165; 99285; A9558; J1200; J2270; J2405; J7030; Q9967

== ENCOUNTER 2018-12-03 15:19 | Emergency (ER) | payer MEDICAID ==
[~2018-12-03] VITALS: Ht 162.6 cm; Wt 55.0 kg
[~2018-12-03 15:19] MED LIST changes: -ASPI-1393 PO; +CALC0.253 PO; -CALCIUM; -DIPH1TAB76; +DOCU-150 MT; -ESOM40CA PO; -HYDR-523 PO; +REN800 MT; -SENSIPAR PO; -VALS80TA2 PO; -[UNRECOGNIZED DRUG - CODE] PO; -[UNRECOGNIZED DRUG - OTHER] PO
[2018-12-03] MEDS ORDERED: CALC650T PO (15:53)
[2018-12-03] MEDS ORDERED: PRAV20TA57 PO (15:53)
[2018-12-03] MEDS ORDERED: REN800 PO (15:53)
[2018-12-03 18:24] VITALS: BP 120/80
[2018-12-03] MEDS ORDERED: CLOTRIMAZOLE/BETAMETHASONE 1/0.05% CREAM 15GM TOP SCH (21:00)
== END 2018-12-03 18:30 | disposition home or self-care (01) ==
LOC: ER 15:19
DX: R05 Cough (principal); R21 Rash and other nonspecific skin eruption; L29.9 Pruritus, unspecified; J40 Bronchitis, not specified as acute or chronic
CPT/HCPCS: 71045; 99283

== ENCOUNTER 2018-12-16 17:03 | Inpatient (IN) | payer MEDICAID ==
[~2018-12-16] VITALS: Ht 167.6 cm; Wt 65.8 kg
[~2018-12-16 17:03] MED LIST changes: +CALC650T PO; +PRAV20TA57 PO; +REN800 PO
[2018-12-16] MEDS ORDERED: MORPHINE SULFATE 4 MG/ML CPJ (NOT FOR IM USE) IV STA (18:10)
[2018-12-16] MEDS ORDERED: ONDANSETRON HCL 4MG/2ML INJ IV STA (18:10)
[2018-12-16 18:24] LABS: BASOPHILS % 2.5 % (0.0-2.0); EOSINOPHILS % 1.6 % (0.0-5.0); HEMATOCRIT. 27.9 % (42.0-52.0); HEMOGLOBIN. 8.9 g/dL (14.0-18.0); LYMPHOCYTES % 23.1 % (20.0-50.0); MEAN PLATELET VOLUME 8.6 fl (7.4-10.4); MONOCYTES % 9.5 % (2.0-8.0); NEUTROPHILS % 63.3 % (40.0-76.0); PLATELET 217 x1000/uL (130-400); RED BLOOD CELL COUNT 4.22 mill/uL (4.7-6.1)
[2018-12-16 18:27] LABS: CHLORIDE 97 mEq/L (98-107)
[2018-12-16 18:28] LABS: INR 1.2; PROTHROMBIN TIME 12.1 sec (9.6-11.0)
[2018-12-16] MEDS ORDERED: CALCIUM GLUCONATE 100MG/ML 10ML VIAL IV ONE (19:15)
[2018-12-16] MEDS ORDERED: CLONIDINE 0.1MG TABLET PO PRN (20:15)
[2018-12-16] MEDS ORDERED: ONDANSETRON HCL 4MG/2ML INJ IV PRN (20:15)
[2018-12-16 20:22] LABS: PLATELET ESTIMATE NORMAL
[2018-12-16] MEDS ORDERED: TRAMADOL 50MG TABLET PO PRN (20:30)
[2018-12-16] MEDS ORDERED: CALCIUM GLUCONATE 1000MG in DEXTROSE 5% WATER 50ML IV NR (21:00)
[2018-12-16] MEDS ORDERED: ZOLPIDEM TARTRATE 5MG TABLET PO PRN (21:00)
[2018-12-17] VITALS (7 sets, daily range): BP systolic 114–157; BP diastolic 69–102
[2018-12-17] MEDS ORDERED: HYDROCODONE/ACETAMINOPHEN 5/325MG TABLET PO PRN (00:30)
[2018-12-17] MEDS ORDERED: EPOETIN ALFA 4000UNITS/ML VIAL SUBCUT SCH (01:00)
[2018-12-17] MEDS: HYDROXYZINE 25MG TABLET PO PRN ×2 (01:30→10:50)
[2018-12-17] MEDS: IRON SUCROSE COMPLEX 100 MG/5 ML ML IV SCH (03:15)
[2018-12-17 07:02] LABS: CHLORIDE 97 mEq/L (98-107)
[2018-12-17 07:22] LABS: BASOPHILS % 1.2 % (0.0-2.0); HEMATOCRIT. 25.7 % (42.0-52.0); HEMOGLOBIN. 8.3 g/dL (14.0-18.0); LYMPHOCYTES % 26.8 % (20.0-50.0); MEAN CORPUSCULAR HEMOGLOBIN 21.3 pg (28.0-32.0); MEAN CORPUSCULAR VOLUME 66.2 fL (80.0-94.0); MEAN PLATELET VOLUME 8.7 fl (7.4-10.4); MONOCYTES % 10.2 % (2.0-8.0); NEUTROPHILS % 58.8 % (40.0-76.0); PLATELET 198 x1000/uL (130-400); RED BLOOD CELL COUNT 3.88 mill/uL (4.7-6.1); RED CELL DISTRIBUTION WIDTH 19.9 % (11.6-14.6)
[2018-12-17] MEDS: CALCIUM ACETATE 667MG CAPSULE PO SCH ×3 (08:31→16:30)
[2018-12-17] MEDS: DOCUSATE SODIUM 100MG CAPSULE PO SCH (08:31)
[2018-12-17] MEDS: CHOLECALCIFEROL (D3) 1000 UNIT TABLET PO SCH (08:34)
[2018-12-17] MEDS: MORPHINE SULFATE 2 MG/ML CPJ (NOT FOR IM USE) IV PRN ×2 (08:48→13:15)
[2018-12-17] MEDS ORDERED: CALCIUM GLUCONATE 1,000 MG in DEXT 5% WATER 90 ML IV NR (10:00)
[2018-12-17 23:31] LABS: CLARITY URINE CLOUDY (CLEAR); COLOR URINE YELLOW (YELLOW); KETONES URINE NEGATIVE (NEGATIVE); LEUKOCYTE ESTERASE URINE 2+ (NEGATIVE); NITRITE URINE NEGATIVE (NEGATIVE); OCCULT BLOOD URINE 2+ (NEGATIVE); PH URINE >=9.0 (4.5-8.0); PROTEIN URINE 3+ (NEGATIVE); SPECIFIC GRAVITY URINE 1.013 (1.005-1.030); UROBILINOGEN URINE 0.2 E.U./dL (0.2-1.0)
[2018-12-18] VITALS: BP 118/65
[2018-12-18 04:00] VITALS: BP 152/92
[2018-12-18 06:33] LABS: BASOPHILS % 1.4 % (0.0-2.0); EOSINOPHILS % 2.4 % (0.0-5.0); HEMATOCRIT. 28.1 % (42.0-52.0); HEMOGLOBIN. 8.9 g/dL (14.0-18.0); LYMPHOCYTES % 17.9 % (20.0-50.0); MEAN CORPUSCULAR VOLUME 66.5 fL (80.0-94.0); MONOCYTES % 10.1 % (2.0-8.0); NEUTROPHILS % 68.2 % (40.0-76.0); PLATELET 188 x1000/uL (130-400); RED BLOOD CELL COUNT 4.23 mill/uL (4.7-6.1); RED CELL DISTRIBUTION WIDTH 20.2 % (11.6-14.6)
[2018-12-18 08:00] VITALS: BP 163/103
[2018-12-18] MEDS: IRON SUCROSE COMPLEX 100 MG/5 ML ML IV SCH (09:15)
[2018-12-18] MEDS: CHOLECALCIFEROL (D3) 1000 UNIT TABLET PO SCH (09:15)
[2018-12-18] MEDS: CALCIUM ACETATE 667MG CAPSULE PO SCH ×3 (09:15→17:39)
[2018-12-18] MEDS: DOCUSATE SODIUM 100MG CAPSULE PO SCH (09:16)
[2018-12-18 09:25] LABS: PHOSPHORUS 2.9 mg/dL (2.5-4.9)
[2018-12-18] MEDS: CEFTRIAXONE 1 G PREMIX 50 ML IV SCH (11:00)
[2018-12-18 12:00] VITALS: BP 124/77
[2018-12-18 16:00] VITALS: BP 147/96
[2018-12-18] MEDS: MORPHINE SULFATE 2 MG/ML CPJ (NOT FOR IM USE) IV PRN (17:48)
[2018-12-18 20:00] VITALS: BP 140/90
[2018-12-18] MEDS ORDERED: EPOETIN ALFA 4000UNITS/ML VIAL SUBCUT NR (21:00)
[2018-12-18] MEDS: HYDROXYZINE 25MG TABLET PO PRN (22:46)
[2018-12-19] VITALS: BP 147/91
[2018-12-19 04:00] VITALS: BP 148/92
[2018-12-19 06:30] LABS: HEMATOCRIT. 27.1 % (42.0-52.0); HEMOGLOBIN. 8.6 g/dL (14.0-18.0); MEAN CORPUSCULAR HEMOGLOBIN 21.4 pg (28.0-32.0); MEAN PLATELET VOLUME 8.8 fl (7.4-10.4); PLATELET 194 x1000/uL (130-400); RED BLOOD CELL COUNT 4.05 mill/uL (4.7-6.1); RED CELL DISTRIBUTION WIDTH 20.2 % (11.6-14.6)
[2018-12-19 08:00] VITALS: BP 124/82
[2018-12-19] MEDS: CHOLECALCIFEROL (D3) 1000 UNIT TABLET PO SCH (08:37)
[2018-12-19] MEDS: CALCIUM ACETATE 667MG CAPSULE PO SCH ×3 (08:37→16:33)
[2018-12-19] MEDS: IRON SUCROSE COMPLEX 100 MG/5 ML ML IV SCH (08:37)
[2018-12-19] MEDS: DOCUSATE SODIUM 100MG CAPSULE PO SCH (08:37)
[2018-12-19] MEDS: HYDROXYZINE 25MG TABLET PO PRN ×2 (08:45→23:01)
[2018-12-19 10:30] LABS: PLATELET ESTIMATE NORMAL
[2018-12-19] MEDS: CEFTRIAXONE 1 G PREMIX 50 ML IV SCH (11:12)
[2018-12-19 11:35] VITALS: BP 158/99
[2018-12-19 15:41] VITALS: BP 116/69
[2018-12-19] MEDS: MORPHINE SULFATE 2 MG/ML CPJ (NOT FOR IM USE) IV PRN (18:54)
[2018-12-20 00:50] VITALS: BP 136/85
[2018-12-20 04:00] VITALS: BP 132/81
[2018-12-20 06:24] LABS: BASOPHILS % 2.2 % (0.0-2.0); EOSINOPHILS % 4.2 % (0.0-5.0); HEMATOCRIT. 27.5 % (42.0-52.0); HEMOGLOBIN. 8.6 g/dL (14.0-18.0); LYMPHOCYTES % 23.1 % (20.0-50.0); MEAN CORPUSCULAR HEMOGLOBIN 21.2 pg (28.0-32.0); MEAN CORPUSCULAR VOLUME 67.8 fL (80.0-94.0); MEAN PLATELET VOLUME 8.6 fl (7.4-10.4); MONOCYTES % 13.7 % (2.0-8.0); NEUTROPHILS % 56.8 % (40.0-76.0); PLATELET 168 x1000/uL (130-400); RED BLOOD CELL COUNT 4.06 mill/uL (4.7-6.1); RED CELL DISTRIBUTION WIDTH 20.7 % (11.6-14.6)
[2018-12-20 08:00] VITALS: BP 119/78
[2018-12-20] MEDS: CALCIUM ACETATE 667MG CAPSULE PO SCH ×3 (09:17→17:44)
[2018-12-20] MEDS: CHOLECALCIFEROL (D3) 1000 UNIT TABLET PO SCH (09:17)
[2018-12-20] MEDS: DOCUSATE SODIUM 100MG CAPSULE PO SCH (09:17)
[2018-12-20] MEDS: CEFTRIAXONE 1 G PREMIX 50 ML IV SCH (11:39)
[2018-12-20 12:00] VITALS: BP 122/73
[2018-12-20 16:00] VITALS: BP 140/75
[2018-12-20] MEDS ORDERED: CALC667C PO (16:35)
[2018-12-20] MEDS ORDERED: NITR-87 MT (16:35)
[2018-12-20 17:09] VITALS: BP 122/73
== END 2018-12-20 18:16 | disposition home or self-care (01) | DRG 425 ==
LOC: ER 17:03 → 8WST 19:42 → ENRESERV 21:05 → ER 22:38
PROVIDERS: ADMIT Internal Medicine; ATTEND Internal Medicine
PROC: 5A1D70Z Performance of Urinary Filtration, Intermittent, Less than 6 Hours Per Day (ICD-10-PCS; principal; 2018-12-16)
PROC: 5A1D70Z Performance of Urinary Filtration, Intermittent, Less than 6 Hours Per Day (ICD-10-PCS; 2018-12-18)
DX: E83.51 Hypocalcemia (principal); I12.0 Hypertensive chronic kidney disease with stage 5 chronic kidney disease or end stage renal disease; N12 Tubulo-interstitial nephritis, not specified as acute or chronic; E44.1 Mild protein-calorie malnutrition; E87.8 Other disorders of electrolyte and fluid balance, not elsewhere classified; G90.8 Other disorders of autonomic nervous system; N18.6 End stage renal disease; E83.39 Other disorders of phosphorus metabolism; M16.0 Bilateral primary osteoarthritis of hip; Q61.3 Polycystic kidney, unspecified; J44.9 Chronic obstructive pulmonary disease, unspecified; D63.1 Anemia in chronic kidney disease; Z91.013 Allergy to seafood; Z88.2 Allergy status to sulfonamides; Z85.46 Personal history of malignant neoplasm of prostate; Z99.2 Dependence on renal dialysis; Z88.8 Allergy status to other drugs, medicaments and biological substances; Z91.018 Allergy to other foods; Z79.899 Other long term (current) drug therapy; Z68.23 Body mass index [BMI] 23.0-23.9, adult
CPT/HCPCS: 36415; 71045; 72148; 73010; 73721; 74176; 76700; 80048; 81003; 82330; 82652; 83970; 84100; 84145; 84484; 86850; 86900; 93306; 93970; 97116; 97162; 97530; 99285; J0610; J0696; J0885; J2270; J2405; J7060

== ENCOUNTER 2019-10-30 10:36 | Inpatient (IN) | payer MEDICAID ==
[~2019-10-30] VITALS: Ht 165.1 cm; Wt 59.9 kg
[~2019-10-30 10:36] MED LIST changes: -ALBU6.7H IH; +ALBU6.7H11 IH; -ATOR10TA PO; +BENZ-16 MT; -CALC0.253 PO; -CALC650T PO; +CALC667C PO; +GUAI600T26 MT; +LEVO500T2 MT; -PHENDM PO; -REN800 MT; -REN800 PO
[2019-10-30] MEDS ORDERED: AZITHROMYCIN 500 MG in DEXT 5% WATER 250 ML IV SCH (11:00)
[2019-10-30] MEDS ORDERED: PIPERACILLIN/TAZOBACTAM 3.375GM/50ML PREMIX IV ONE (11:15)
[2019-10-30] MEDS ORDERED: PIPERACILLIN/TAZ 3.375G PREMIX 50 ML IV NR (11:15)
[2019-10-30] MEDS ORDERED: VANCOMYCIN 1 G PREMIX 200 ML IV SCH (11:15)
[2019-10-30] MEDS ORDERED: SODIUM CHLORIDE 0.9% 500 ML IV ONE (11:45)
[2019-10-30 11:46] LABS: CHLORIDE 88 mEq/L (98-107)
[2019-10-30 13:08] LABS: INR 1.3; PROTHROMBIN TIME 13.5 sec (9.6-11.0)
[2019-10-30 14:26] LABS: BASOPHILS % 0.6 % (0.0-2.0); EOSINOPHILS % 0.6 % (0.0-5.0); HEMATOCRIT. 27.6 % (42.0-52.0); HEMOGLOBIN. 8.8 g/dL (14.0-18.0); LYMPHOCYTES % 8.1 % (20.0-50.0); MEAN CORPUSCULAR HEMOGLOBIN 20.5 pg (28.0-32.0); MEAN CORPUSCULAR VOLUME 63.9 fL (80.0-94.0); MEAN PLATELET VOLUME 8.8 fl (7.4-10.4); MONOCYTES % 12.5 % (2.0-8.0); NEUTROPHILS % 78.2 % (40.0-76.0); PLATELET 196 x1000/uL (130-400); RED BLOOD CELL COUNT 4.31 mill/uL (4.7-6.1); RED CELL DISTRIBUTION WIDTH 18.4 % (11.6-14.6)
[2019-10-30 14:51] LABS: PLATELET ESTIMATE NORMAL
[2019-10-30] MEDS ORDERED: SODIUM CHLORIDE 0.9% 1,000 ML IV ONE (16:15)
[2019-10-30] MEDS ORDERED: NOREPINEPHRINE 4MG/250ML PMX IV PRN (20:30)
[2019-10-31] MEDS: GUAIFENESIN 200MG/10ML SUGAR FREE UDC PO PRN ×2 (01:08→06:46)
[2019-10-31] MEDS: IPRATROPIUM/ALBUTEROL 0.5-3(2.5)MG/3ML NEB HHN PRN ×2 (01:14→06:46)
[2019-10-31] MEDS ORDERED: MORPHINE SULFATE 2 MG/ML CPJ (NOT FOR IM USE) IV PRN (08:30)
[2019-10-31] MEDS ORDERED: ONDANSETRON HCL 4MG/2ML INJ IV PRN (11:00)
[2019-10-31] MEDS: MIDODRINE HCL 5MG TABLET PO SCH ×3 (11:41→19:04)
[2019-10-31] MEDS ORDERED: VANCOMYCIN 500 MG PREMIX 100 ML IV NR (13:00)
[2019-10-31] MEDS ORDERED: PIPERACILLIN/TAZOBACTAM 2.25 G in DEXT 5% WATER 100 ML IV SCH (13:00)
[2019-10-31 17:40] VITALS: BP 111/75
[2019-10-31 20:00] VITALS: BP 105/70
[2019-10-31] MEDS: DOCUSATE SODIUM 100MG CAPSULE PO SCH (20:51)
[2019-10-31] MEDS: PIPERACILLIN/TAZOBACTAM 2.25 G in DEXTROSE 5% WATER 50 ML IV SCH (20:51)
[2019-11-01] VITALS (7 sets, daily range): BP systolic 79–109; BP diastolic 46–67
[2019-11-01] MEDS: PIPERACILLIN/TAZOBACTAM 2.25 G in DEXTROSE 5% WATER 50 ML IV SCH ×3 (04:12→20:00)
[2019-11-01 07:28] LABS: BASOPHILS % 0.8 % (0.0-2.0); EOSINOPHILS % 4.3 % (0.0-5.0); HEMATOCRIT. 28.3 % (42.0-52.0); HEMOGLOBIN. 8.9 g/dL (14.0-18.0); LYMPHOCYTES % 13.3 % (20.0-50.0); MEAN CORPUSCULAR VOLUME 63.9 fL (80.0-94.0); MEAN PLATELET VOLUME 8.6 fl (7.4-10.4); MONOCYTES % 11.9 % (2.0-8.0); NEUTROPHILS % 69.7 % (40.0-76.0); PLATELET 230 x1000/uL (130-400); RED BLOOD CELL COUNT 4.43 mill/uL (4.7-6.1); RED CELL DISTRIBUTION WIDTH 19.2 % (11.6-14.6)
[2019-11-01] MEDS: DOCUSATE SODIUM 100MG CAPSULE PO SCH ×2 (08:44→17:38)
[2019-11-01] MEDS: MIDODRINE HCL 5MG TABLET PO SCH ×3 (08:44→17:38)
[2019-11-01] MEDS: ASPIRIN 81MG TABLET PO SCH (08:44)
[2019-11-01] MEDS: AZITHROMYCIN 500 MG TABLET PO SCH (08:44)
[2019-11-01] MEDS ORDERED: SODIUM CHLORIDE 0.9% 250 ML IV SCH (15:30)
[2019-11-01] MEDS ORDERED: MIDODRINE HCL 5MG TABLET PO ONE (15:30)
[2019-11-02] VITALS: BP 100/50
[2019-11-02] MEDS: PIPERACILLIN/TAZOBACTAM 2.25 G in DEXTROSE 5% WATER 50 ML IV SCH ×2 (03:34→12:39)
[2019-11-02 04:00] VITALS: BP 103/57
[2019-11-02 06:16] LABS: BASOPHILS % 1.3 % (0.0-2.0); EOSINOPHILS % 5.3 % (0.0-5.0); HEMATOCRIT. 26.8 % (42.0-52.0); HEMOGLOBIN. 8.5 g/dL (14.0-18.0); LYMPHOCYTES % 13.5 % (20.0-50.0); MEAN CORPUSCULAR HEMOGLOBIN 20.2 pg (28.0-32.0); MEAN CORPUSCULAR VOLUME 63.5 fL (80.0-94.0); MONOCYTES % 14.9 % (2.0-8.0); PLATELET 239 x1000/uL (130-400); RED BLOOD CELL COUNT 4.22 mill/uL (4.7-6.1); RED CELL DISTRIBUTION WIDTH 18.7 % (11.6-14.6)
[2019-11-02 08:00] VITALS: BP 90/54
[2019-11-02] MEDS: DOCUSATE SODIUM 100MG CAPSULE PO SCH (09:14)
[2019-11-02] MEDS: MIDODRINE HCL 5MG TABLET PO SCH ×2 (09:14→12:45)
[2019-11-02] MEDS: AZITHROMYCIN 500 MG TABLET PO SCH (09:14)
[2019-11-02] MEDS: ASPIRIN 81MG TABLET PO SCH (09:15)
[2019-11-02 12:00] VITALS: BP 92/50
[2019-11-02] MEDS ORDERED: VANCOMYCIN 1 G PREMIX 200 ML IV NR (12:00)
[2019-11-02 14:32] VITALS: BP 99/54
== END 2019-11-02 15:16 | disposition home or self-care (01) | DRG 426 ==
LOC: ER 11:41 → EDBEDREQTM 20:15 → EDBEDREQSVC 20:15 → 6WST 10-31 11:31 → EDBEDREQSVC 10-31 14:34 → ENRESERV 10-31 15:52 → 6WST 11-01 19:30
PROVIDERS: ADMIT Internal Medicine; ATTEND Internal Medicine
PROC: 5A1D70Z Performance of Urinary Filtration, Intermittent, Less than 6 Hours Per Day (ICD-10-PCS; principal; 2019-10-31)
PROC: 5A1D70Z Performance of Urinary Filtration, Intermittent, Less than 6 Hours Per Day (ICD-10-PCS; 2019-11-01)
DX: E87.1 Hypo-osmolality and hyponatremia (principal); I12.0 Hypertensive chronic kidney disease with stage 5 chronic kidney disease or end stage renal disease; E44.1 Mild protein-calorie malnutrition; E83.51 Hypocalcemia; J44.9 Chronic obstructive pulmonary disease, unspecified; D63.8 Anemia in other chronic diseases classified elsewhere; E87.8 Other disorders of electrolyte and fluid balance, not elsewhere classified; N18.6 End stage renal disease; E78.00 Pure hypercholesterolemia, unspecified; E87.70 Fluid overload, unspecified; M16.0 Bilateral primary osteoarthritis of hip; Z85.46 Personal history of malignant neoplasm of prostate; Z20.828 Contact with and (suspected) exposure to other viral communicable diseases; Q61.3 Polycystic kidney, unspecified; Z68.22 Body mass index [BMI] 22.0-22.9, adult; Z99.2 Dependence on renal dialysis; Z88.5 Allergy status to narcotic agent; Z88.8 Allergy status to other drugs, medicaments and biological substances; Z91.013 Allergy to seafood; Z91.018 Allergy to other foods
CPT/HCPCS: 36415; 71045; 80048; 80053; 80202; 80305; 83605; 83880; 84145; 84484; 85025; 93005; 97162; 99291; J0456; J2270; J2405; J2543; J3370; J3490; J7030; J7040; J7060; C9803-CS; U0003-CS

== ENCOUNTER 2019-12-10 11:44 | Emergency (ER) | payer MEDICAID ==
[~2019-12-10] VITALS: Ht 170.2 cm; Wt 64.0 kg
[~2019-12-10 11:44] MED LIST changes: -LEVO500T2 MT
[2019-12-10 12:45] VITALS: BP 110/64
[2019-12-10] MEDS ORDERED: DIPHENHYDRAMINE 25MG CAPSULE PO ONE (12:45)
== END 2019-12-10 12:47 | disposition home or self-care (01) ==
LOC: ER 12:44
DX: L29.9 Pruritus, unspecified (principal); J44.9 Chronic obstructive pulmonary disease, unspecified; N18.6 End stage renal disease; E78.00 Pure hypercholesterolemia, unspecified; D64.9 Anemia, unspecified; Z99.2 Dependence on renal dialysis; Z88.6 Allergy status to analgesic agent; Z91.013 Allergy to seafood; Z88.8 Allergy status to other drugs, medicaments and biological substances; Z88.2 Allergy status to sulfonamides; Z91.018 Allergy to other foods; Z79.899 Other long term (current) drug therapy
CPT/HCPCS: 99282; 99283

== ENCOUNTER 2020-05-15 08:08 | Inpatient (IN) | payer MEDICAID ==
[~2020-05-15] VITALS: Ht 167.6 cm; Wt 70.0 kg
[~2020-05-15 08:08] MED LIST changes: -DIPH25CA83 PO
[2020-05-15] MEDS ORDERED: ACETAMINOPHEN 325MG TABLET PO STA (08:43)
[2020-05-15] MEDS ORDERED: PIPERACILLIN/TAZ 3.375G PREMIX 50 ML IV ONE (08:45)
[2020-05-15] MEDS ORDERED: VANCOMYCIN 1 G PREMIX 200 ML IV ONE (08:45)
[2020-05-15 09:02] LABS: CHLORIDE 86 mEq/L (98-107); HEMATOCRIT. 29.5 % (42.0-52.0); HEMOGLOBIN. 8.9 g/dL (14.0-18.0); MEAN CORPUSCULAR HEMOGLOBIN 18.6 pg (28.0-32.0); MEAN CORPUSCULAR VOLUME 61.6 fL (80.0-94.0); MEAN PLATELET VOLUME 9.4 fl (7.4-10.4); PLATELET 304 x1000/uL (130-400); RED CELL DISTRIBUTION WIDTH 19.5 % (11.6-14.6)
[2020-05-15] MEDS ORDERED: NOREPINEPHRINE 8MG/250ML PMX 250 ML IV STA (09:14)
[2020-05-15 09:17] LABS: INR 1.5; PROTHROMBIN TIME 15.3 sec (9.6-11.0)
[2020-05-15] MEDS ORDERED: NOREPINEPHRINE 8 MG in DEXTROSE 5% WATER 250 ML IV ONE (09:30)
[2020-05-15] MEDS ORDERED: SODIUM CHLORIDE 0.9% 1,000 ML IV ONE (09:30)
[2020-05-15 09:32] LABS: ATYPICAL LYMPHOCYTES 1
[2020-05-15 09:34] LABS: PLATELET ESTIMATE NORMAL
[2020-05-15 11:08] LABS: BG BASE EXCESS -7.5 mmol/L (-2.0-2.0); BG DEOXYHEMOGLOBIN 1.1 % (0.0-5.0); BG HCO3 ACT 16.1 mmol/L (22.0-26.0); BG METHEMOGLOBIN 0.1 % (0.0-1.5); BG OXYGEN SATURATION 98.9 % (92.0-98.5); BG OXYHEMOGLOBIN 98.8 % (94.0-97.0); BG PCO2 26.2 mmHg (35.0-45.0); BG PH 7.406 (7.350-7.450); BG PO2 177.2 mmHg (75.0-100.0); BG SAMPLE SITE RIGHT RADIAL; BG TOTAL RESPIRATORY RATE 33 b/min; BG VENT MODE MASK - BIPAP
[2020-05-15] MEDS ORDERED: LIDOCAINE HCL 1% 20ML VIAL (Pyxis) INJ ONE (11:53)
[2020-05-15 11:55] LABS: CLARITY URINE CLOUDY (CLEAR); COLOR URINE DK YELLOW (YELLOW); KETONES URINE NEGATIVE (NEGATIVE); LEUKOCYTE ESTERASE URINE 2+ (NEGATIVE); NITRITE URINE NEGATIVE (NEGATIVE); OCCULT BLOOD URINE 1+ (NEGATIVE); PH URINE 7.5 (4.5-8.0); PROTEIN URINE 4+ (NEGATIVE); SPECIFIC GRAVITY URINE 1.014 (1.005-1.030); UROBILINOGEN URINE 0.2 E.U./dL (0.2-1.0)
[2020-05-15] MEDS ORDERED: MORPHINE SULFATE 2 MG/ML CPJ (NOT FOR IM USE) IV ONE (12:15)
[2020-05-15] MEDS ORDERED: PIPERACILLIN/TAZOBACTAM 3.375 G in DEXT 5% WATER 100 ML IV SCH (13:00)
[2020-05-15] MEDS ORDERED: ALBUTEROL 6.7GM HFA INHALER ORI PRN (13:00)
[2020-05-15] MEDS: MIDODRINE HCL 5MG TABLET PO SCH (13:00)
[2020-05-15] MEDS: DEXAMETHASONE 4MG TABLET PO SCH (13:30)
[2020-05-15] MEDS: PIPERACILLIN/TAZOBACTAM 2.25 G in DEXTROSE 5% WATER 50 ML IV SCH ×2 (14:00→22:00)
[2020-05-15] MEDS: ENOXAPARIN 30MG/0.3ML SYR SUBCUT SCH (14:00)
[2020-05-15 15:10] LABS: BG BASE EXCESS -7.6 mmol/L (-2.0-2.0); BG CARBOXYHEMOGLOBIN 0.5 % (0.5-1.5); BG DEOXYHEMOGLOBIN 1.3 % (0.0-5.0); BG FRACTION INSPIRED OXYGEN 100; BG HCO3 ACT 16.5 mmol/L (22.0-26.0); BG METHEMOGLOBIN 0.3 % (0.0-1.5); BG OXYGEN SATURATION 98.7 % (92.0-98.5); BG OXYHEMOGLOBIN 97.9 % (94.0-97.0); BG PH 7.388 (7.350-7.450); BG PO2 149.4 mmHg (75.0-100.0); BG SAMPLE SITE RIGHT BRACHIAL; BG TOTAL HEMOGLOBIN 8.2 g/dL (12.0-18.0); BG TOTAL RESPIRATORY RATE 41 b/min; BG VENT MODE MASK - CPAP
[2020-05-15] MEDS ORDERED: VANCOMYCIN 1 G PREMIX 200 ML IV SCH (22:00)
[2020-05-16] MEDS: MORPHINE SULFATE 2 MG/ML CPJ (NOT FOR IM USE) IV PRN ×3 (00:17→09:55)
[2020-05-16] MEDS: ONDANSETRON HCL 4MG/2ML INJ IV PRN ×2 (00:21→05:36)
[2020-05-16] MEDS ORDERED: NOREPINEPHRINE 8 MG in SODIUM CHLORIDE 0.9% 242 ML IV SCH (01:00)
[2020-05-16 05:07] LABS: BASOPHILS % 0.2 % (0.0-2.0); EOSINOPHILS % 0.1 % (0.0-5.0); HEMATOCRIT. 31.8 % (42.0-52.0); HEMOGLOBIN. 9.5 g/dL (14.0-18.0); LYMPHOCYTES % 7.5 % (20.0-50.0); MEAN CORPUSCULAR HEMOGLOBIN 18.5 pg (28.0-32.0); MEAN PLATELET VOLUME 8.6 fl (7.4-10.4); MONOCYTES % 4.5 % (2.0-8.0); NEUTROPHILS % 87.7 % (40.0-76.0); PLATELET 219 x1000/uL (130-400); RED BLOOD CELL COUNT 5.13 mill/uL (4.7-6.1); RED CELL DISTRIBUTION WIDTH 20.1 % (11.6-14.6)
[2020-05-16] MEDS: PIPERACILLIN/TAZOBACTAM 2.25 G in DEXTROSE 5% WATER 50 ML IV SCH ×2 (05:09→19:43)
[2020-05-16] MEDS: DEXAMETHASONE 4MG TABLET PO SCH (08:45)
[2020-05-16] MEDS: MIDODRINE HCL 5MG TABLET PO SCH ×4 (09:00→17:33)
[2020-05-16] MEDS: ENOXAPARIN 30MG/0.3ML SYR SUBCUT SCH (09:18)
[2020-05-16] MEDS ORDERED: MIDAZOLAM HCL 100 MG in DEXT 5% WATER 100 ML IV PRN (14:45)
[2020-05-16] MEDS ORDERED: FENTANYL CITRATE 2,500 MCG in SODIUM CHLORIDE 0.9% 200 ML IV PRN (14:45)
[2020-05-16 15:40] LABS: BG BASE EXCESS -18.3 mmol/L (-2.0-2.0); BG CARBOXYHEMOGLOBIN 0.5 % (0.5-1.5); BG DEOXYHEMOGLOBIN 20.5 % (0.0-5.0); BG FRACTION INSPIRED OXYGEN 100; BG HCO3 ACT 11.6 mmol/L (22.0-26.0); BG METHEMOGLOBIN 0.3 % (0.0-1.5); BG OXYGEN SATURATION 79.3 % (92.0-98.5); BG OXYHEMOGLOBIN 78.7 % (94.0-97.0); BG PCO2 45.8 mmHg (35.0-45.0); BG PO2 63.1 mmHg (75.0-100.0); BG SAMPLE SITE RIGHT RADIAL; BG TOTAL HEMOGLOBIN 8.5 g/dL (12.0-18.0); BG VENT MODE VENT - AC
[2020-05-16] MEDS ORDERED: DEXTROSE 50% WATER 50ML SYRINGE IV ONE (17:30)
[2020-05-16] MEDS ORDERED: EPINEPHRINE 10 MG in SODIUM CHLORIDE 0.9% 250 ML IV ONE (21:30)
[2020-05-16] MEDS ORDERED: EPINEPHRINE 5 MG in SODIUM CHLORIDE 0.9% 245 ML IV STA (21:32)
[2020-05-16 23:29] LABS: CHLORIDE 94 mEq/L (98-107)
[2020-05-16 23:30] VITALS: BP 46/25
[2020-05-16] MEDS ORDERED: DOPAMINE 400MG/250ML PREMIX 250 ML IV PRN (23:30)
== END 2020-05-17 23:59 | disposition expired | DRG 720 ==
LOC: EDBD 08:08 → ER 08:08 → MICUSO 11:16
PROVIDERS: ADMIT Internal Medicine; ATTEND Internal Medicine
PROC: 05HY33Z Insertion of Infusion Device into Upper Vein, Percutaneous Approach (ICD-10-PCS; 2020-05-15)
PROC: B54MZZA Ultrasonography of Right Upper Extremity Veins, Guidance (ICD-10-PCS; 2020-05-15)
PROC: 5A09357 Assistance with Respiratory Ventilation, Less than 24 Consecutive Hours, Continuous Positive Airway Pressure (ICD-10-PCS; 2020-05-15)
PROC: 06HY33Z Insertion of Infusion Device into Lower Vein, Percutaneous Approach (ICD-10-PCS; principal; 2020-05-16)
PROC: B54BZZA Ultrasonography of Right Lower Extremity Veins, Guidance (ICD-10-PCS; 2020-05-16)
PROC: 5A12012 Performance of Cardiac Output, Single, Manual (ICD-10-PCS; 2020-05-16)
PROC: 5A1D70Z Performance of Urinary Filtration, Intermittent, Less than 6 Hours Per Day (ICD-10-PCS; 2020-05-16)
PROC: 0BH17EZ Insertion of Endotracheal Airway into Trachea, Via Natural or Artificial Opening (ICD-10-PCS; 2020-05-16)
PROC: 5A1935Z Respiratory Ventilation, Less than 24 Consecutive Hours (ICD-10-PCS; 2020-05-16)
PROC: 5A09357 Assistance with Respiratory Ventilation, Less than 24 Consecutive Hours, Continuous Positive Airway Pressure (ICD-10-PCS; 2020-05-16)
DX: A41.89 Other specified sepsis (principal); U07.1 COVID-19; R65.21 Severe sepsis with septic shock; I50.33 Acute on chronic diastolic (congestive) heart failure; J12.82 Pneumonia due to coronavirus disease 2019; C61 Malignant neoplasm of prostate; D53.9 Nutritional anemia, unspecified; J96.01 Acute respiratory failure with hypoxia; D63.1 Anemia in chronic kidney disease; D72.810 Lymphocytopenia; E16.2 Hypoglycemia, unspecified; E44.1 Mild protein-calorie malnutrition; E78.00 Pure hypercholesterolemia, unspecified; E78.5 Hyperlipidemia, unspecified; E83.51 Hypocalcemia; E87.1 Hypo-osmolality and hyponatremia; E87.2 Acidosis; E87.8 Other disorders of electrolyte and fluid balance, not elsewhere classified; I13.2 Hypertensive heart and chronic kidney disease with heart failure and with stage 5 chronic kidney disease, or end stage renal disease; K82.8 Other specified diseases of gallbladder; R74.01 Elevation of levels of liver transaminase levels; M19.90 Unspecified osteoarthritis, unspecified site; N18.6 End stage renal disease; I46.9 Cardiac arrest, cause unspecified; J44.0 Chronic obstructive pulmonary disease with (acute) lower respiratory infection; Z85.46 Personal history of malignant neoplasm of prostate; Z99.2 Dependence on renal dialysis; Z88.6 Allergy status to analgesic agent; Z88.8 Allergy status to other drugs, medicaments and biological substances; Z91.09 Other allergy status, other than to drugs and biological substances; Z79.899 Other long term (current) drug therapy; Z68.24 Body mass index [BMI] 24.0-24.9, adult; Z88.2 Allergy status to sulfonamides; Z88.5 Allergy status to narcotic agent; Z91.013 Allergy to seafood
CPT/HCPCS: 36415; 36600; 71045; 74176; 76937; 80048; 80053; 81003; 82375; 82728; 82805; 82962; 83605; 83615; 83735; 84145; 84484; 85025; 85379; 86140; 93005; 96365; 99291; C1725; J1265; J1650; J2250; J2270; J2405; J2543; J3010; J3370; J3490; J7030; J7050; J7060; J8540; U0003; A4315